=== PATIENT | female | born 1945 | race Caucasian/White ===

== ENCOUNTER → 2017-03-19 | Outpatient (CLI) | payer OTHER | LOC: HEART 5 03-13 10:00 | DX: R00.2 Palpitations (principal) ==

== ENCOUNTER → 2017-04-01 | Outpatient (CLI) | payer OTHER | LOC: KOH-I 11:24 | DX: R10.32 Left lower quadrant pain (principal); I71.4 Abdominal aortic aneurysm, without rupture | CPT/HCPCS: 74176 ==

== ENCOUNTER 2020-12-11 12:47 | Emergency (ER) | payer OTHER ==
[~2020-12-11 12:47] MED LIST: VENTOLIN HFA 66.7 GM INH
[2020-12-11 13:28] LABS: HEMOGLOBIN 14.8 gm/dl (12.3-15.3); RED BLOOD COUNT 5.03 M/UL (4.00-5.10); WHITE BLOOD COUNT 7.4 K/UL (4.5-11.0)
[2020-12-11 13:53] LABS: BUN/CREATININE RATIO 16 (0-10)
[2020-12-11] MEDS ORDERED: LOPRESSOR 25 MG25 MG PO (18:30)
== END 2020-12-11 18:47 | disposition home or self-care (01) ==
LOC: ER1 12:47
PROVIDERS: Family Medicine
DX: I71.4 Abdominal aortic aneurysm, without rupture (principal); N83.209 Unspecified ovarian cyst, unspecified side; K80.80 Other cholelithiasis without obstruction; N20.0 Calculus of kidney; I10 Essential (primary) hypertension; Z88.0 Allergy status to penicillin
CPT/HCPCS: 36415; 71045; 80053; 81001; 82550; 82553; 83690; 84484; 85025; 86850; 86900; 86901; 93005; 99284; Q9967

== ENCOUNTER → 2021-02-01 | Outpatient (CLI) | payer OTHER ==
[~2021-02-01] MED LIST changes: +LOPRESSOR 25 MG25 MG PO
== END ==
LOC: LAB 11:13
PROVIDERS: Emergency Medicine
DX: M13.851 Other specified arthritis, right hip (principal); E78.2 Mixed hyperlipidemia; I10 Essential (primary) hypertension; R73.09 Other abnormal glucose
CPT/HCPCS: 36415; 73502; 80048; 80061

== ENCOUNTER → 2021-02-22 | Outpatient (CLI) | payer OTHER | LOC: MAMO 15:11 | DX: Z12.31 Encounter for screening mammogram for malignant neoplasm of breast (principal) | CPT/HCPCS: 77063; 77067 ==

== ENCOUNTER → 2021-11-27 | Outpatient (CLI) | payer OTHER | LOC: KOH-I 14:45 | DX: J41.1 Mucopurulent chronic bronchitis (principal) | CPT/HCPCS: 71046 ==

== ENCOUNTER → 2022-02-25 | Outpatient (CLI) | payer OTHER | LOC: EXRD 14:10 | DX: M79.662 Pain in left lower leg (principal); M79.661 Pain in right lower leg; I73.89 Other specified peripheral vascular diseases | CPT/HCPCS: 93925 ==